=== PATIENT | female | born 1985 | race Caucasian/White ===

== ENCOUNTER → 2017-01-13 | Outpatient (CLI) | payer OTHER ==
[~2017-01-13] MED LIST: LEVO25TA5 PO; MTR600X PO; PRENTAB26 PO
[2017-01-13 09:53] LABS: PROLACTIN 12.94 ng/mL
== END | disposition home or self-care (01) ==
LOC: C.LAB 08:11
PROVIDERS: ATTEND Obstetrics & Gynecology
DX: Z31.41 Encounter for fertility testing (principal); E03.9 Hypothyroidism, unspecified

== ENCOUNTER → 2017-01-22 | Outpatient (CLI) | payer OTHER | END | disposition home or self-care (01) | LOC: C.LABBFT 14:25 | PROVIDERS: ATTEND Internal Medicine | DX: Z00.00 Encounter for general adult medical examination without abnormal findings (principal) ==

== ENCOUNTER → 2017-10-18 | Outpatient (CLI) | payer OTHER | END | disposition home or self-care (01) | LOC: C.LAB 01:10 | PROVIDERS: ATTEND Nurse Practitioner | DX: E03.9 Hypothyroidism, unspecified (principal) ==

== ENCOUNTER → 2018-01-11 | Outpatient (CLI) | payer OTHER | END | disposition home or self-care (01) | LOC: C.LAB 10:51 | PROVIDERS: ATTEND Obstetrics & Gynecology | DX: Z32.01 Encounter for pregnancy test, result positive (principal) ==

== ENCOUNTER → 2018-01-13 | Outpatient (CLI) | payer OTHER | END | disposition home or self-care (01) | LOC: C.LAB 10:24 | PROVIDERS: ATTEND Obstetrics & Gynecology | DX: E03.9 Hypothyroidism, unspecified (principal); Z32.01 Encounter for pregnancy test, result positive ==

== ENCOUNTER 2018-09-08 10:43 | Inpatient (IN) ==
[2018-09-08] MEDS ORDERED: OXYTOCIN 30 UNITS/500 ML BAG IV PRN ×3 (10:47→20:11)
[2018-09-08] MEDS ORDERED: LACTATED RINGER'S 1,000 ML IV PRN ×3 (10:47→17:11)
[2018-09-08] MEDS: LACTATED RINGER'S 1,000 ML IV SCH ×3 (11:03→19:21)
[2018-09-08 11:09] LABS: Hematocrit (blood only) 36.8 % (37-47); Hemoglobin 12.3 g/dL (12.0-16.0); Mean Corpuscular Volume 90.6 fL (80-100); Mean Platelet Volume 10.5 fL (7.4-10.4); Platelet Count 229 K/uL (130-400); RDW Coefficient of Variation 14.6 % (11.5-14.5); RDW Standard Deviation 48.4 fL (36.4-46.3); Red Blood Count 4.06 M/uL (4.2-5.4)
[2018-09-08 11:12] LABS: Mean Corpuscular Hgb Conc 33.4 g/dL (32-36)
[2018-09-08] MEDS ORDERED: PENICILLIN G POTASSIUM 6 MU in DEXTROSE 5% 250 ML IV ONE (11:15)
[2018-09-08] MEDS: PENICILLIN G POTASSIUM 3 MU in DEXTROSE 5% 100 ML IV PRN ×2 (15:26→19:23)
[2018-09-08] MEDS ORDERED: BUPIVACAINE 0.25% 30 ML VIAL ONE (16:39)
[2018-09-08] MEDS ORDERED: fentaNYL citrate 100 MCG/2 ML VIAL ONE (16:39)
[2018-09-08] MEDS ORDERED: ePHEDrine sulfate 50 MG/ML AMP ONE (16:39)
[2018-09-08] MEDS ORDERED: fentaNYL 2MCG/ML ROPIV 1.25MG/ML 100 ML BAG EPI ONE (16:40)
--- NOTE | 2018-09-08 16:45 | Anesthesiology Consultation ---
Date of Service September 08, 2018 Assessment & Plan Chart Review Chart Review: Acceptable Risk for Surgery and Patient NOT seen in Pre Admission Testing Consults Requested none ASA ASA2 Proposed Anesthesia Anesthesia Type: Labor Epidural Risk / Benefits Reviewed With: PT / POA / Parent / Guardian, Accepts Plan and Informed Consent Obtained NPO Date Last Intake of Fluids: 09/08/18 Time Last Intake of Fluids: 08:50 Date Last Intake of Solids: 09/08/18 Time Last Intake of Solids: 08:50 History Height/Weight Height: 5 ft 7 in Weight: 98.702 kg Allergies Allergy/AdvReac Type Severity Reaction Status Date / Time No Known Allergies Allergy Verified 09/08/18 12:02 Medications Home Medications Medication Instructions Recorded Confirmed Last Taken aspirin 81 mg PO DAILY 09/08/18 09/08/18 09/06/18 levothyroxine 75 mcg PO DAILY 09/08/18 09/08/18 09/07/18 08:00 vit [id number] 1 tab PO DAILY 09/08/18 09/08/18 09/07/18 08:00 [ Vitamin] Active Medications Generic Name Dose Route Start Last Admin Trade Name Freq PRN Reason Stop Dose Admin Lactated Ringer's 1,000 mls @ 125 mls/hr 09/08/18 11:00 09/08/18 16:31 Lr IV 09/10/18 10:59 999 mls/hr .Q8H ESTEPHANIA Administration Penicillin G Potassium 3 mu/ 106 mls @ 100 mls/hr 09/08/18 10:47 09/08/18 15:26 Dextrose IV 09/18/18 10:46 100 mls/hr Q4H PRN Administration Give until delivery Oxytocin 30 units in 500 mls @ 7 mls/hr 09/08/18 12:38 09/08/18 15:07 Pitocin IV 10/08/18 12:37 0.42 units/hr .Q24H PRN 7 mls/hr Labor Induction/Augmentation Titration Protocol 0.42 UNITS/HR Past Medical History Medical History Hypothyroid Obese Past Family History Family History Father Bladder cancer Anxiety and depression Mother Bladder cancer Hypothyroid Anxiety and depression Sister Hypothyroid Past Anesthesia History No Hx of Anesthesia Complications and No Family Hx of Anesthesia Complications History of PONV No Motion Sickness Screening History of Motion Sickness: No Social History Smoking Status: Never smoker Do You Dip or Chew Tobacco: No Hx Alcohol Use: No Hx Substance Use: No Exercise / Class Metabolic Activity II 4-5 Yardwork/Stairs/Walk up hill Physical Exam Vital Signs Last Vital Signs Temp 36.9 C 09/08/18 12:56 Pulse 71 09/08/18 14:58 Resp 20 09/08/18 13:29 BP 130/66 09/08/18 14:58 Constitutional + obese ENMT Mouth: no dentition abnormality Thyromental Distance: > or= 3.5 Finger Breadths Mallampati Class: II Neck normal visual inspection and trachea midline; neck extension not limited Respiratory normal respiratory effort Auscultation: lungs clear to auscultation bilaterally Cardiovascular Rate/Rhythm: regular rate and regular rhythm Heart Sounds: no murmur Musculoskeletal Spine: lumbar spine normal to inspection; normal cervical ROM Neurologic moves all extremities Motor/Sensory: no sensory deficit Psychiatric Orientation: alert and oriented x 3 Testing Laboratory Results 09/08/18 10:54
[2018-09-08] MEDS ORDERED: ePHEDrine sulfate 50 MG/ML AMP IV PRN (17:11)
[2018-09-08] MEDS ORDERED: ONDANSETRON INJ 2 MG/ML 2 ML VIAL IV PRN (17:11)
[2018-09-08] MEDS ORDERED: fentaNYL 2MCG/ML ROPIV 1.25MG/ML 100 ML BAG EPI PRN (17:11)
[2018-09-08] MEDS ORDERED: NALOXONE HCL 0.4 MG/1 ML VIAL/CARP IV PRN (17:11)
[2018-09-08] MEDS ORDERED: DiphenhydrAMINE HCL 50 MG/ML VIAL IV PRN (17:11)
[2018-09-08] MEDS ORDERED: NALBUPHINE HCL INJ 10 MG/ML AMP IV PRN (17:11)
[2018-09-08] MEDS ORDERED: NALOXONE HCL 1 MG in SODIUM CHLORIDE 0.9% 1000ML 1,000 ML IV PRN (17:11)
[2018-09-08] MEDS ORDERED: PROMETHAZINE HCL 25 MG in SODIUM CHLORIDE 0.9% 50 ML IV PRN (17:11)
--- NOTE | 2018-09-08 19:09 | Obstetrical Progress Note ---
Date of Service September 08, 2018 Subjective Comfortable with epidural. FHT: 140s, mod jordyn. +accels. +variable decels and +early decels SVE: 6-7//-1 Stop pitocin, position changes. Physical Exam Vital Signs (Past 24 Hours): Last Vital Signs Temp 37.0 C 09/08/18 16:50 Pulse 90 09/08/18 19:03 Resp 20 09/08/18 16:50 BP 140/75 09/08/18 19:03 Pulse Ox 100 09/08/18 19:03
--- NOTE | 2018-09-08 20:07 | Anesthesia Procedure Note ---
Date of Service September 08, 2018 Anesthesia Post Epidural Note Vital Signs Vital Signs: Temp Pulse Resp BP Pulse Ox 36.8 C 95 H 18 119/56 L 98 09/08/18 19:09 09/08/18 20:03 09/08/18 19:09 09/08/18 20:03 09/08/18 19:58 Notes Mental Status: alert / awake / arousable Nausea / Vomiting: adequately controlled Pain: adequately controlled Airway Patency, RR, SpO2: stable & adequate BP & HR: stable & adequate Hydration State: stable & adequate Neuraxial Anesthesia: was administered Anesthetic Complications: no major complications apparent Epidural: Removed without complications and With tip intact
--- NOTE | 2018-09-08 20:08 | Procedure Note ---
Vaginal Delivery Summary Date of Service September 08, 2018 Vaginal Delivery Summary Predelivery diagnoses: 33-year-old at 39 weeks 4 days, spontaneous rupture of membranes, group B strep positive, hypothyroidism Post delivery diagnoses: Same, first-degree perineal laceration Procedure: Spontaneous vaginal delivery, repair of first-degree perineal laceration Surgeon: Dr. Echavarria Estimated blood loss: 300 mL Consultations: None Findings: Viable male , Apgars 8 and 9. Weight pending, please see nursery records. Description of delivery: Patient progressed to complete with epidural anesthesia. She then began to push. After 3 pushes, she spontaneously vaginally delivered a viable from the cephalic presentation. The head delivered in male left occiput anterior position, followed by anterior shoulder, followed by posterior shoulder, followed by body. Baby was placed on mother's abdomen. No nuchal cord was noted. The cord was doubly clamped and cut, spontaneous cry was heard. Cord blood was obtained. The placenta was delivered spontaneously intact with a three-vessel cord. The uterus and vagina was swabbed of all clots and debris. Pitocin was given. The uterus became firm. The cervix, vagina and perineum were inspected, and a right periurethral laceration was noted, this was hemostatic, and therefore not repaired. And a first-degree perineal laceration was noted, this was repaired in standard fashion with 3-0 Vicryl. Sponge, instrument, needle counts correct x 2. Excellent hemostasis observed. Patient and baby are recovering in the room in stable/good condition.
[2018-09-08] MEDS ORDERED: SUPERCREAM 0.870% 15 GM JAR EXT PRN (20:11)
[2018-09-08] MEDS ORDERED: HYDROCORTISONE ACETATE 25 MG SUPP PR PRN (20:11)
[2018-09-08] MEDS ORDERED: BENZOCAINE 20% AER SPR 82.5 GM CAN EXT PRN (20:11)
[2018-09-08] MEDS ORDERED: ACETAMINOPHEN 325 MG TAB PO PRN (20:11)
[2018-09-08] MEDS ORDERED: DIPHTHERIA/TETANUS/PERTUSSIS 0.5 ML SYR/VIAL IM ONE (20:11)
[2018-09-08] MEDS ORDERED: OXYCODONE/ACETAMINOPHEN 5mg/325mg TAB PO PRN (20:11)
[2018-09-08] MEDS: IBUPROFEN 600 MG TAB PO PRN (21:51)
[2018-09-08] MEDS: DOCUSATE SODIUM 100 MG CAP PO SCH (21:51)
[2018-09-09] MEDS: IBUPROFEN 600 MG TAB PO PRN ×2 (05:19→20:03)
[2018-09-09] MEDS: LEVOTHYROXINE SODIUM 75 MCG TABLET PO SCH (05:22)
[2018-09-09 06:23] LABS: Hematocrit (blood only) 35.7 % (37-47); Hemoglobin 11.9 g/dL (12.0-16.0)
--- NOTE | 2018-09-09 07:03 | Obstetrical Progress Note ---
Date of Service <Gary Dumont DO - Last Filed: 09/09/18 07:30> September 09, 2018 Assessment & Plan <Gary Dumont DO - Last Filed: 09/09/18 07:30> (1) Spontaneous vaginal delivery: 33 y/o, @ 39.4, GBS+ - continue routine post- care (2) with 38 completed weeks gestation: Subjective <Gary Dumont DO - Last Filed: 09/09/18 07:30> Ambulation: ambulating normally Voiding: no voiding problems Diet Tolerance:: regular diet Lochia:: Small Feeding Type:: breast feeding Seda states she is doing well this morning, no acute events overnight. She denies chest pain, shortness of breath, fever, chills, headache, nausea, vomiting. Physical Exam <Gary Dumont DO - Last Filed: 09/09/18 07:30> Vital Signs (Past 24 Hours) Last Vital Signs Temp 36.9 C 09/09/18 02:30 Pulse 68 09/09/18 02:30 Resp 16 09/09/18 02:30 BP 112/70 09/09/18 02:30 Pulse Ox 97 09/09/18 02:30 Constitutional WD/WN, vitals as above cooperative and comfortable Eyes + anicteric sclerae and EOM intact bilaterally Neck normal visual inspection and trachea midline Respiratory normal respiratory effort, lungs clear to auscultation Cardiovascular Rate/Rhythm: regular rate and regular rhythm Heart Sounds: no murmur Gastrointestinal (Abdomen) uterine fundus is firm, non-tender, 2cm inferior to umbilicus Musculoskeletal Head/Neck/Chest: normocephalic and head atraumatic Skin no rashes, warm and dry Neurologic moves all extremities and awake Psychiatric A+Ox3, euthymic affect Results & Data <Gary Dumont DO - Last Filed: 09/09/18 07:30> Laboratory Results Laboratory Results - last 24 hr 09/08/18 09/09/18 10:54 05:56 WBC 9.80 RBC 4.06 L Hgb 12.3 11.9 L Hct 36.8 L 35.7 L MCV 90.6 MCH 30.3 MCHC 33.4 RDW Std Deviation 48.4 H RDW Coeff of Tj 14.6 H Plt Count 229 MPV 10.5 H Medications Administered Benzocaine (Dermoplast Pain Relieving [place]) 1 appln EXT PRN PRN PRN Reason: Perineal Discomfort Stop: 10/08/18 20:10 Last Admin: 09/08/18 21:51 Dose: 1 appln Documented by: [id number] Docusate Sodium (Colace) 100 mg PO BID [facility] Stop: 10/08/18 20:59 Last Admin: 09/08/18 21:51 Dose: 100 mg Documented by: [id number] Ibuprofen (Motrin) 600 mg PO Q4H PRN PRN Reason: Pain/MORFIN/Cramping/Fever Stop: 10/08/18 20:10 Last Admin: 09/09/18 05:19 Dose: 600 mg Documented by: [id number] Admin: 09/08/18 21:51 Dose: 600 mg Documented by: [id number] Levothyroxine Sodium (Synthroid) 75 mcg PO DAILYBB [facility] Stop: 10/09/18 06:29 Last Admin: 09/09/18 05:22 Dose: 75 mcg Documented by: [id number] <Elsa Echavarria, - Last Filed: 09/09/18 07:28> Co-Signing Physician Notes I have seen/examined patient. I have read above note performed by resident and I agree with above. Any changes/additions are as follows: PPD#1 doing well. Anticipate DC home tomorrow. Elsa Echavarria DO [facility]
[2018-09-09] MEDS ORDERED: PRENATAL VITAMIN 1 TAB PO SCH (09:00)
[2018-09-09] MEDS: DOCUSATE SODIUM 100 MG CAP PO SCH ×2 (09:02→20:02)
[2018-09-09] MEDS: PRENATAL VITAMIN 1 TAB PO SCH (09:02)
[2018-09-09] MEDS ORDERED: BISACODYL 5 MG TABEC PO SCH (20:00)
[2018-09-10] MEDS: LEVOTHYROXINE SODIUM 75 MCG TABLET PO SCH (05:41)
[2018-09-10] MEDS ORDERED: BISACODYL 10 MG SUPP PR PRN (06:00)
--- NOTE | 2018-09-10 07:18 | Obstetrical Progress Note ---
Date of Service <Gary Dumont - Last Filed: 09/10/18 07:18> September 10, 2018 Assessment & Plan <Gary Dumont - Last Filed: 09/10/18 07:18> (1) Spontaneous vaginal delivery: 33 y/o, @ 39.4, GBS+ - continue routine post- care until discharge home today - discharge instructions reviewed at bedside (2) with 38 completed weeks gestation: Subjective <Gary Dumont - Last Filed: 09/10/18 07:18> Ambulation: ambulating normally Voiding: no voiding problems Passing Gas:: Yes Diet Tolerance:: regular diet Lochia:: Small Feeding Type:: breast feeding Seda states she is doing well today, no acute events overnight. She denies fever, chills, chest pains, shortness of breath, nausea, vomiting. Physical Exam <Gary Dumont - Last Filed: 09/10/18 07:18> Vital Signs (Past 24 Hours) Last Vital Signs Temp 36.8 C 09/09/18 23:35 Pulse 75 09/09/18 23:35 Resp 16 09/09/18 23:35 BP 108/61 09/09/18 23:35 Pulse Ox 98 09/09/18 23:35 Constitutional WD/WN, vitals as above cooperative and comfortable Eyes + anicteric sclerae and EOM intact bilaterally Neck normal visual inspection and trachea midline Respiratory normal respiratory effort, lungs clear to auscultation Cardiovascular Rate/Rhythm: regular rate and regular rhythm Heart Sounds: no murmur Gastrointestinal (Abdomen) uterine fundus is firm, non-tender, 3cm inferior to umbilicus Musculoskeletal Head/Neck/Chest: normocephalic and head atraumatic Skin no rashes, warm and dry Neurologic moves all extremities and awake Psychiatric A+Ox3, euthymic affect Results & Data <Gary Dumont - Last Filed: 09/10/18 07:18> Medications Administered Benzocaine (Dermoplast Pain Relieving [place]) 1 appln EXT PRN PRN PRN Reason: Perineal Discomfort Stop: 10/08/18 20:10 Last Admin: 09/08/18 21:51 Dose: 1 appln Documented by: [id number] Docusate Sodium (Colace) 100 mg PO BID ESTEPHANIA Stop: 10/08/18 20:59 Last Admin: 09/09/18 20:02 Dose: 100 mg Documented by: [id number] Admin: 09/09/18 09:02 Dose: 100 mg Documented by: [id number] Admin: 09/08/18 21:51 Dose: 100 mg Documented by: [id number] Ibuprofen (Motrin) 600 mg PO Q4H PRN PRN Reason: Pain/MORFIN/Cramping/Fever Stop: 10/08/18 20:10 Last Admin: 09/09/18 20:03 Dose: 600 mg Documented by: [id number] Admin: 09/09/18 05:19 Dose: 600 mg Documented by: [id number] Admin: 09/08/18 21:51 Dose: 600 mg Documented by: [id number] Levothyroxine Sodium (Synthroid) 75 mcg PO DAILYBB [facility] Stop: 10/09/18 06:29 Last Admin: 09/10/18 05:41 Dose: 75 mcg Documented by: [id number] Admin: 09/09/18 05:22 Dose: 75 mcg Documented by: [id number] Prenat Multivit/[place]/Iron/Folic Ac ( Vitamin) 1 tab PO DAILY ESTEPHANIA Stop: 10/09/18 08:59 Last Admin: 09/09/18 09:02 Dose: 1 tab Documented by: [id number] <Feroz Fleming MD - Last Filed: 09/20/18 18:17> Co-Signing Physician Notes Patient evaluated and agree findings and plan
[2018-09-10] MEDS: DOCUSATE SODIUM 100 MG CAP PO SCH (09:44)
[2018-09-10] MEDS: PRENATAL VITAMIN 1 TAB PO SCH (09:44)
== END 2018-09-10 11:45 | disposition home or self-care (01) | DRG 807 ==
LOC: 4S1 10:43 → 4S2 22:19
DX: O76 Abnormality in fetal heart rate and rhythm complicating labor and delivery; Z79.899 Other long term (current) drug therapy; O99.824 Streptococcus B carrier state complicating childbirth; Z3A.39 39 weeks gestation of pregnancy; O99.284 Endocrine, nutritional and metabolic diseases complicating childbirth; Z79.82 Long term (current) use of aspirin; E66.9 Obesity, unspecified; E03.9 Hypothyroidism, unspecified; O70.0 First degree perineal laceration during delivery; Z37.0 Single live birth; O99.214 Obesity complicating childbirth